=== PATIENT | female | born 1945 | race African-American/Black ===

== ENCOUNTER → 2017-03-09 | Outpatient (CLI) | payer MEDICARE, MEDICAID ==
[~2017-03-09] MED LIST: AZAT50TA18 PO; DEXL60CA3 PO; DICL75TA5 PO; FERR324T11 PO; GABA-531 PO; MINO10TA PO; PRED10TA PO; PRED5TAB48 PO; PYRI60TA10 PO; SIMV20TA6 PO
== END | disposition home or self-care (01) ==
LOC: LAB 13:22
PROVIDERS: ATTEND Neurological Surgery
DX: Z47.89 Encounter for other orthopedic aftercare (principal); M43.17 Spondylolisthesis, lumbosacral region; M47.897 Other spondylosis, lumbosacral region; I70.0 Atherosclerosis of aorta; Z98.1 Arthrodesis status
CPT/HCPCS: 72114

== ENCOUNTER → 2017-03-27 | Outpatient (CLI) | payer MEDICARE, MEDICAID | END | disposition home or self-care (01) | LOC: MAMMO 07:28 | PROVIDERS: ATTEND Internal Medicine | DX: Z12.31 Encounter for screening mammogram for malignant neoplasm of breast (principal); I10 Essential (primary) hypertension; I51.7 Cardiomegaly; J44.9 Chronic obstructive pulmonary disease, unspecified | CPT/HCPCS: 71020; G0202 ==

== ENCOUNTER → 2018-02-13 | Outpatient (CLI) | payer MEDICARE, MEDICAID | END | disposition home or self-care (01) | LOC: MRI 08:34 | PROVIDERS: ATTEND Neurological Surgery | DX: M48.061 Spinal stenosis, lumbar region without neurogenic claudication (principal); Z98.1 Arthrodesis status | CPT/HCPCS: 72148 ==

== ENCOUNTER → 2018-03-28 | Outpatient (CLI) | payer MEDICARE, MEDICAID ==
[~2018-03-28] MED LIST changes: +ASPI-1159 MT; +ATOR40TA70 MT; -PRED5TAB48 PO
== END | disposition home or self-care (01) ==
LOC: MAMMO 08:04
PROVIDERS: ATTEND Obstetrics & Gynecology Obstetrics
DX: R92.8 Other abnormal and inconclusive findings on diagnostic imaging of breast (principal)
CPT/HCPCS: 77066

== ENCOUNTER 2018-10-12 06:47 | Emergency (ER) | payer MEDICARE, MEDICAID ==
[~2018-10-12] VITALS: Ht 167.6 cm; Wt 66.0 kg
[2018-10-12 06:53] VITALS: BP 136/76
== END 2018-10-12 09:03 | disposition home or self-care (01) ==
LOC: ER 07:02
DX: M25.552 Pain in left hip (principal); M25.551 Pain in right hip; J44.9 Chronic obstructive pulmonary disease, unspecified; I10 Essential (primary) hypertension; Z79.82 Long term (current) use of aspirin; Z79.899 Other long term (current) drug therapy; Z98.890 Other specified postprocedural states
CPT/HCPCS: 73521; 99283

== ENCOUNTER 2018-10-26 06:34 | Inpatient (IN) | payer MEDICARE, MEDICAID ==
[~2018-10-26] VITALS: Ht 167.6 cm; Wt 65.8 kg
[2018-10-26] MEDS ORDERED: ACETAMINOPHEN 325MG TABLET PO ONE (07:45)
[2018-10-26] MEDS ORDERED: MORPHINE SULFATE 4 MG/ML CPJ (NOT FOR IM USE) IV ONE (08:00)
[2018-10-26] MEDS ORDERED: ONDANSETRON HCL 4MG/2ML INJ IV ONE (08:00)
[2018-10-26 08:05] LABS: BASOPHILS % 0.3 % (0.0-2.0); EOSINOPHILS % 0.2 % (0.0-5.0); HEMATOCRIT. 28.1 % (36.0-48.0); HEMOGLOBIN. 9.4 g/dL (12.0-16.0); LYMPHOCYTES % 8.5 % (20.0-50.0); MEAN CORPUSCULAR HEMOGLOBIN 29.4 pg (28.0-32.0); MEAN CORPUSCULAR VOLUME 87.8 fL (81.0-99.0); MEAN PLATELET VOLUME 6.8 fl (7.4-10.4); PLATELET 279 x1000/uL (130-400)
[2018-10-26 08:14] LABS: CHLORIDE 107 mEq/L (98-107)
[2018-10-26 08:40] LABS: PARTIAL THROMBOPLASTIN TIME 22.9 sec (23.4-31.0); PROTHROMBIN TIME 10.2 sec (9.1-11.1)
[2018-10-26] MEDS ORDERED: MORPHINE SULFATE 2 MG/ML CPJ (NOT FOR IM USE) IV ONE (08:46)
[2018-10-26] MEDS ORDERED: IOHEXOL-300 100 ML BOTTLE ONE (10:04)
[2018-10-26] MEDS ORDERED: DOCUSATE SODIUM 100MG CAPSULE PO PRN (14:15)
[2018-10-26] MEDS ORDERED: CLONIDINE 0.1MG TABLET PO PRN (14:15)
[2018-10-26] MEDS ORDERED: CYCL25PO21 PO (15:20)
[2018-10-26 15:30] VITALS: BP 111/64
[2018-10-26 16:00] VITALS: BP 111/64
[2018-10-26] MEDS: PANTOPRAZOLE 40MG DR TABLET PO SCH (21:00)
[2018-10-26] MEDS: MINOXIDIL 10MG TABLET PO SCH (21:00)
[2018-10-26] MEDS: GABAPENTIN 300MG CAPSULE PO SCH (21:04)
[2018-10-26] MEDS: HYDROMORPHONE HCL/PF 2MG/ML CPJ IV PRN (21:21)
[2018-10-26 23:41] VITALS: BP 113/51
[2018-10-26 23:49] LABS: VITAMIN B12 SERUM 1631 pg/mL (211-911)
[2018-10-26] MEDS: PYRIDOSTIGMINE BROMIDE 60MG TABLET PO SCH (23:59)
[2018-10-26] MEDS: AZATHIOPRINE 50MG TABLET PO SCH (23:59)
[2018-10-27 03:00] VITALS: BP 124/56
[2018-10-27] MEDS: PYRIDOSTIGMINE BROMIDE 60MG TABLET PO SCH ×4 (06:39→23:44)
[2018-10-27] MEDS: HYDROMORPHONE HCL/PF 2MG/ML CPJ IV PRN ×2 (07:06→16:35)
[2018-10-27 07:40] LABS: BASOPHILS % 0.4 % (0.0-2.0); EOSINOPHILS % 1.3 % (0.0-5.0); HEMOGLOBIN. 8.3 g/dL (12.0-16.0); LYMPHOCYTES % 10.8 % (20.0-50.0); MEAN CORPUSCULAR HEMOGLOBIN 30.3 pg (28.0-32.0); MEAN CORPUSCULAR VOLUME 87.6 fL (81.0-99.0); MEAN PLATELET VOLUME 7.3 fl (7.4-10.4); MONOCYTES % 11.6 % (2.0-8.0); NEUTROPHILS % 75.9 % (40.0-76.0); PLATELET 269 x1000/uL (130-400); RED BLOOD CELL COUNT 2.74 mill/uL (4.2-5.4)
[2018-10-27 07:51] LABS: CHLORIDE 107 mEq/L (98-107)
[2018-10-27 08:00] VITALS: BP 114/55
[2018-10-27] MEDS: ONDANSETRON HCL 4MG/2ML INJ IV PRN ×2 (08:52→13:09)
[2018-10-27] MEDS: MINOXIDIL 10MG TABLET PO SCH ×2 (09:44→17:02)
[2018-10-27] MEDS: GABAPENTIN 300MG CAPSULE PO SCH ×2 (09:44→20:43)
[2018-10-27] MEDS: PREDNISONE 10MG TABLET PO SCH (09:44)
[2018-10-27] MEDS: AZATHIOPRINE 50MG TABLET PO SCH (09:45)
[2018-10-27] MEDS: DICLOFENAC SODIUM 75MG DR (EC) TABLET PO SCH ×3 (09:45→20:43)
[2018-10-27] MEDS: PANTOPRAZOLE 40MG DR TABLET PO SCH (09:45)
[2018-10-27 12:00] VITALS: BP 107/50
[2018-10-27 16:00] VITALS: BP 140/60
[2018-10-27 20:00] VITALS: BP 113/61
[2018-10-27] MEDS ORDERED: SORBITOL 70% SOLN 30ML PO NR ×2 (20:00)
[2018-10-27] MEDS: ATORVASTATIN CALCIUM 20MG TABLET PO SCH ×2 (20:43)
[2018-10-27] MEDS: HYDROCODONE/ACETAMINOPHEN 10/325MG TABLET PO PRN (22:54)
[2018-10-28] VITALS: BP 138/50
[2018-10-28 04:00] VITALS: BP 118/53
[2018-10-28] MEDS: PYRIDOSTIGMINE BROMIDE 60MG TABLET PO SCH ×3 (05:42→16:29)
[2018-10-28] MEDS ORDERED: SORBITOL 70% SOLN 30ML PO NR (06:00)
[2018-10-28 08:00] VITALS: BP 118/50
[2018-10-28] MEDS ORDERED: NA PHOS,M-B/NA PHOS,DI-BA ENEMA 118ML PR NR (08:00)
[2018-10-28] MEDS: AZATHIOPRINE 50MG TABLET PO SCH (08:30)
[2018-10-28] MEDS: MINOXIDIL 10MG TABLET PO SCH ×2 (08:30→16:29)
[2018-10-28] MEDS: GABAPENTIN 300MG CAPSULE PO SCH ×2 (08:31→20:28)
[2018-10-28] MEDS: DICLOFENAC SODIUM 75MG DR (EC) TABLET PO SCH ×2 (08:31→20:29)
[2018-10-28] MEDS: PANTOPRAZOLE 40MG DR TABLET PO SCH (08:31)
[2018-10-28] MEDS ORDERED: MIDAZOLAM HCL 5 MG/5 ML VIAL ONE (10:11)
[2018-10-28] MEDS ORDERED: SIMETHICONE 40 MG/0.6 ML 30ML ONE (10:12)
[2018-10-28] MEDS ORDERED: FENTANYL CITRATE/PF 50MCG/ML 2ML VIAL ONE (10:12)
[2018-10-28] MEDS ORDERED: MIDAZOLAM HCL 5 MG/5 ML VIAL IV PRN (10:37)
[2018-10-28] MEDS ORDERED: FENTANYL CITRATE/PF 50MCG/ML 2ML VIAL IV PRN (10:39)
[2018-10-28 12:00] VITALS: BP 121/55
[2018-10-28] MEDS ORDERED: SODIUM CHLORIDE 0.9% 10ML VIAL ONE (14:41)
[2018-10-28 16:00] VITALS: BP 95/48
[2018-10-28 17:34] LABS: BASOPHILS % 0.6 % (0.0-2.0); EOSINOPHILS % 0.4 % (0.0-5.0); HEMATOCRIT. 24.1 % (36.0-48.0); HEMOGLOBIN. 7.9 g/dL (12.0-16.0); LYMPHOCYTES % 8.5 % (20.0-50.0); MEAN CORPUSCULAR HEMOGLOBIN 28.8 pg (28.0-32.0); MEAN CORPUSCULAR VOLUME 88.2 fL (81.0-99.0); MEAN PLATELET VOLUME 6.8 fl (7.4-10.4); MONOCYTES % 11.5 % (2.0-8.0); PLATELET 243 x1000/uL (130-400); RED BLOOD CELL COUNT 2.73 mill/uL (4.2-5.4); RED CELL DISTRIBUTION WIDTH 17.8 % (11.6-14.6)
[2018-10-28 20:00] VITALS: BP 101/47
[2018-10-28] MEDS: ATORVASTATIN CALCIUM 20MG TABLET PO SCH (20:28)
[2018-10-28] MEDS: HYDROCODONE/ACETAMINOPHEN 10/325MG TABLET PO PRN (21:59)
[2018-10-29] VITALS (9 sets, daily range): BP systolic 105–138; BP diastolic 50–82
[2018-10-29] MEDS: PYRIDOSTIGMINE BROMIDE 60MG TABLET PO SCH ×4 (00:27→17:00)
[2018-10-29] MEDS: ACETAMINOPHEN 325MG TABLET PO PRN (00:46)
[2018-10-29 06:44] LABS: BASOPHILS % 0.6 % (0.0-2.0); EOSINOPHILS % 1.4 % (0.0-5.0); HEMATOCRIT. 23.4 % (36.0-48.0); HEMOGLOBIN. 7.6 g/dL (12.0-16.0); LYMPHOCYTES % 12.3 % (20.0-50.0); MEAN CORPUSCULAR HEMOGLOBIN 28.7 pg (28.0-32.0); MEAN CORPUSCULAR VOLUME 87.8 fL (81.0-99.0); MEAN PLATELET VOLUME 7.4 fl (7.4-10.4); MONOCYTES % 11.3 % (2.0-8.0); NEUTROPHILS % 74.4 % (40.0-76.0); PLATELET 252 x1000/uL (130-400); RED BLOOD CELL COUNT 2.66 mill/uL (4.2-5.4); RED CELL DISTRIBUTION WIDTH 17.8 % (11.6-14.6)
[2018-10-29 07:16] LABS: CHLORIDE 107 mEq/L (98-107)
[2018-10-29] MEDS: GABAPENTIN 300MG CAPSULE PO SCH ×2 (08:03→21:57)
[2018-10-29] MEDS: PREDNISONE 10MG TABLET PO SCH (08:04)
[2018-10-29] MEDS: AZATHIOPRINE 50MG TABLET PO SCH (08:04)
[2018-10-29] MEDS: PANTOPRAZOLE 40MG DR TABLET PO SCH (08:05)
[2018-10-29] MEDS: DICLOFENAC SODIUM 75MG DR (EC) TABLET PO SCH ×2 (08:05→21:57)
[2018-10-29] MEDS: HYDROCODONE/ACETAMINOPHEN 10/325MG TABLET PO PRN ×3 (08:05→21:57)
[2018-10-29] MEDS: MINOXIDIL 10MG TABLET PO SCH ×2 (08:11→17:00)
[2018-10-29] MEDS: ATORVASTATIN CALCIUM 20MG TABLET PO SCH (21:57)
[2018-10-29 23:52] LABS: HEMATOCRIT 27.9 % (36.0-48.0); HEMOGLOBIN 9.4 g/dL (12.0-16.0)
[2018-10-30] VITALS: BP 110/56
[2018-10-30] MEDS: PYRIDOSTIGMINE BROMIDE 60MG TABLET PO SCH ×3 (00:04→11:36)
[2018-10-30 04:00] VITALS: BP 102/51
[2018-10-30 08:00] VITALS: BP 116/52
[2018-10-30] MEDS: AZATHIOPRINE 50MG TABLET PO SCH (08:44)
[2018-10-30] MEDS: DICLOFENAC SODIUM 75MG DR (EC) TABLET PO SCH (08:45)
[2018-10-30] MEDS: MINOXIDIL 10MG TABLET PO SCH (08:45)
[2018-10-30] MEDS: PANTOPRAZOLE 40MG DR TABLET PO SCH (08:45)
[2018-10-30] MEDS: GABAPENTIN 300MG CAPSULE PO SCH (08:45)
[2018-10-30] MEDS: ACETAMINOPHEN 325MG TABLET PO PRN (08:48)
[2018-10-30] MEDS: HYDROCODONE/ACETAMINOPHEN 10/325MG TABLET PO PRN (09:41)
[2018-10-30 12:00] VITALS: BP 129/55
[2018-10-30 14:51] VITALS: BP 126/53
[2018-10-30 16:00] VITALS: BP 117/68
== END 2018-10-30 16:25 | disposition home or self-care (01) | DRG 244 ==
LOC: ER 06:34 → 6EST 12:41 → EDBEDREQ 12:44 → EDBEDREQTM 12:44 → EDBEDREQSVC 12:44 → ENRESERV 13:43
PROVIDERS: ADMIT Internal Medicine; ATTEND Internal Medicine
PROC: 0DJD8ZZ Inspection of Lower Intestinal Tract, Via Natural or Artificial Opening Endoscopic (ICD-10-PCS; principal; 2018-10-28 10:00)
PROC: 30233N1 Transfusion of Nonautologous Red Blood Cells into Peripheral Vein, Percutaneous Approach (ICD-10-PCS; 2018-10-29)
DX: K57.31 Diverticulosis of large intestine without perforation or abscess with bleeding (principal); D62 Acute posthemorrhagic anemia; G70.00 Myasthenia gravis without (acute) exacerbation; I11.9 Hypertensive heart disease without heart failure; J44.9 Chronic obstructive pulmonary disease, unspecified; K64.8 Other hemorrhoids; E78.5 Hyperlipidemia, unspecified; K21.9 Gastro-esophageal reflux disease without esophagitis; E53.8 Deficiency of other specified B group vitamins; M19.90 Unspecified osteoarthritis, unspecified site; G89.29 Other chronic pain; M54.5 Low back pain; N32.81 Overactive bladder; M47.26 Other spondylosis with radiculopathy, lumbar region; Z90.49 Acquired absence of other specified parts of digestive tract; Z98.1 Arthrodesis status; Z79.899 Other long term (current) drug therapy; Z85.038 Personal history of other malignant neoplasm of large intestine; Z87.891 Personal history of nicotine dependence; Z83.3 Family history of diabetes mellitus
CPT/HCPCS: 36415; 72148; 73502; 73552; 74177; 80048; 82040; 82270; 82607; 84439; 85014; 85018; 86850; 86900; 86920; 87015; 87045; 87427; 87449; 93970; 96374; 96375; 99152; 99285; A4216; J1170; J2250; J2270; J2405; J3010; J7500; J7512; P9016; Q9967; G0500

== ENCOUNTER → 2019-08-06 | Outpatient (CLI) | payer MEDICARE, MEDICAID ==
[~2019-08-06] MED LIST changes: -ASPI-1159 MT; +ASPI-1393 MT; +CYCL25PO21 PO
== END | disposition home or self-care (01) ==
LOC: MAMMO 12:24
PROVIDERS: ATTEND Internal Medicine
DX: Z12.31 Encounter for screening mammogram for malignant neoplasm of breast (principal); R92.1 Mammographic calcification found on diagnostic imaging of breast
CPT/HCPCS: 77067

== ENCOUNTER → 2020-09-08 | Outpatient (CLI) | payer MEDICARE, MEDICAID ==
[~2020-09-08] MED LIST changes: -ASPI-1393 MT; +ASPI-1497 MT; +SIMV-43 PO; -SIMV20TA6 PO
== END | disposition home or self-care (01) ==
LOC: LAB 06:51
PROVIDERS: ATTEND Obstetrics & Gynecology Obstetrics
DX: Z01.812 Encounter for preprocedural laboratory examination (principal); Z20.828 Contact with and (suspected) exposure to other viral communicable diseases
CPT/HCPCS: C9803; U0003

== ENCOUNTER → 2020-09-10 | Outpatient (CLI) | payer MEDICARE, MEDICAID | END | disposition home or self-care (01) | LOC: MAMMO 08:17 | PROVIDERS: ATTEND Obstetrics & Gynecology Obstetrics | DX: Z12.31 Encounter for screening mammogram for malignant neoplasm of breast (principal) | CPT/HCPCS: 77067 ==

== ENCOUNTER 2022-04-27 16:57 | Inpatient (IN) | payer MEDICARE, OTHER ==
[~2022-04-27] VITALS: Ht 167.6 cm; Wt 68.0 kg
[~2022-04-27 16:57] MED LIST changes: +CYCL25PO15 PO; -CYCL25PO21 PO; -GABA-531 PO; +GABA-532 PO
[2022-04-27 19:23] LABS: HEMATOCRIT. 37.9 % (36.0-48.0); HEMOGLOBIN. 12.6 g/dL (12.0-16.0); MEAN CORPUSCULAR HEMOGLOBIN 29.2 pg (28.0-32.0); MEAN CORPUSCULAR VOLUME 87.6 fL (81.0-99.0); MEAN PLATELET VOLUME 7.4 fl (7.4-10.4); PLATELET 311 x1000/uL (130-400); RED BLOOD CELL COUNT 4.32 mill/uL (4.2-5.4); RED CELL DISTRIBUTION WIDTH 18.1 % (11.6-14.6)
[2022-04-27 19:29] LABS: CHLORIDE 109 mEq/L (98-107)
[2022-04-27] MEDS ORDERED: ACETAMINOPHEN 650MG SUPP PR PRN ×2 (20:15)
[2022-04-27] MEDS ORDERED: MORPHINE SULFATE 2 MG/ML CPJ (NOT FOR IM USE) IV PRN (20:15)
[2022-04-27] MEDS ORDERED: ACETAMINOPHEN 325MG TABLET PO PRN ×2 (20:15)
[2022-04-27] MEDS ORDERED: GUAIFENESIN 200MG/10ML SUGAR FREE UDC PO PRN (20:15)
[2022-04-27] MEDS ORDERED: NON FORMULARY PATIENT HOME MED XX SCH (20:15)
[2022-04-27] MEDS ORDERED: IPRATROPIUM/ALBUTEROL 0.5-3(2.5)MG/3ML NEB HHN PRN (20:15)
[2022-04-27] MEDS ORDERED: ONDANSETRON HCL 4MG/2ML INJ IV PRN (20:15)
[2022-04-27] MEDS ORDERED: MAGNESIUM/ALUMINUM HYDROXIDE/SIMETHICONE 30ML UDC PO PRN (20:15)
[2022-04-27] MEDS ORDERED: CLONIDINE 0.1MG TABLET PO PRN (20:15)
[2022-04-27] MEDS ORDERED: DOCUSATE SODIUM 100MG CAPSULE PO PRN (20:15)
[2022-04-27] MEDS ORDERED: PRED10TA PO (20:53)
[2022-04-27] MEDS ORDERED: DENO60DI SUBCUT (20:53)
[2022-04-27] MEDS ORDERED: MIRA50TA PO (20:53)
[2022-04-27] MEDS ORDERED: ERGO1250 PO (20:53)
[2022-04-27] MEDS ORDERED: PANT40TA51 PO (20:53)
[2022-04-27] MEDS ORDERED: HYDR50TA PO (20:53)
[2022-04-27] MEDS ORDERED: AZAT50TA24 PO (20:53)
[2022-04-27] MEDS ORDERED: CYCL10TA21 PO (20:53)
[2022-04-27] MEDS ORDERED: POTA-185 PO (20:53)
[2022-04-27] MEDS ORDERED: PYRI60TA10 PO (20:53)
[2022-04-27] MEDS ORDERED: [UNRECOGNIZED DRUG - CODE] PO (20:53)
[2022-04-27] MEDS ORDERED: POTA-205 PO (20:54)
[2022-04-27] MEDS ORDERED: PYRIDOSTIGMINE BROMIDE 60MG TABLET PO PRN (21:15)
[2022-04-27 21:19] LABS: PLATELET ESTIMATE NORMAL
[2022-04-27 22:17] VITALS: BP 116/63
[2022-04-27 22:30] VITALS: BP 105/63
[2022-04-27] MEDS ORDERED: DOPAMINE 400MG/250ML PREMIX 250 ML IV PRN (22:30)
[2022-04-27 23:58] VITALS: BP 118/54
[2022-04-28] VITALS (11 sets, daily range): BP systolic 91–139; BP diastolic 45–69
[2022-04-28] MEDS ORDERED: DOPAMINE 400MG/250ML PREMIX 250 ML IV PRN (02:30)
[2022-04-28] MEDS ORDERED: TIZA-204 PO (04:01)
[2022-04-28] MEDS ORDERED: TIZANIDINE HCL 2MG TABLET PO PRN (04:15)
[2022-04-28 07:05] LABS: BASOPHILS % 0.4 % (0.0-2.0); EOSINOPHILS % 0.6 % (0.0-5.0); HEMATOCRIT. 34.7 % (36.0-48.0); HEMOGLOBIN. 11.5 g/dL (12.0-16.0); LYMPHOCYTES % 9.7 % (20.0-50.0); MEAN CORPUSCULAR HEMOGLOBIN 28.9 pg (28.0-32.0); MEAN CORPUSCULAR VOLUME 87.3 fL (81.0-99.0); MEAN PLATELET VOLUME 7.2 fl (7.4-10.4); MONOCYTES % 11.9 % (2.0-8.0); NEUTROPHILS % 77.4 % (40.0-76.0); PLATELET 276 x1000/uL (130-400); RED BLOOD CELL COUNT 3.98 mill/uL (4.2-5.4); RED CELL DISTRIBUTION WIDTH 17.9 % (11.6-14.6)
[2022-04-28 07:12] LABS: CHLORIDE 109 mEq/L (98-107)
[2022-04-28 07:24] LABS: CREATINE KINASE 64 IU/L (26-192); HDL CHOLESTEROL 75 mg/dL (40-59); LDL CHOLESTEROL 67 mg/dL (5-100)
[2022-04-28 08:34] LABS: PROTHROMBIN TIME 10.9 sec (9.6-11.0)
[2022-04-28] MEDS: LOSARTAN POTASSIUM 100 MG TABLET PO SCH (09:00)
[2022-04-28] MEDS ORDERED: ASPIRIN 81MG EC TABLET PO SCH (09:00)
[2022-04-28] MEDS: AMLODIPINE 10MG TABLET PO SCH (09:00)
[2022-04-28] MEDS: AZATHIOPRINE 50MG TABLET PO SCH (09:00)
[2022-04-28] MEDS: PREDNISONE 10MG TABLET PO SCH (09:00)
[2022-04-28] MEDS ORDERED: GENTAMICIN/NS IRRIGATION 500 ML IR ONE (12:50)
[2022-04-28 13:02] LABS: CLARITY URINE CLEAR (CLEAR); COLOR URINE YELLOW (YELLOW); KETONES URINE NEGATIVE (NEGATIVE); LEUKOCYTE ESTERASE URINE NEGATIVE (NEGATIVE); NITRITE URINE NEGATIVE (NEGATIVE); OCCULT BLOOD URINE NEGATIVE (NEGATIVE); PH URINE 5.5 (4.5-8.0); PROTEIN URINE NEGATIVE (NEGATIVE); SPECIFIC GRAVITY URINE 1.015 (1.005-1.030)
[2022-04-28] MEDS ORDERED: DIPHENHYDRAMINE 50MG/ML VIAL ONE (14:27)
[2022-04-28] MEDS ORDERED: LIDOCAINE HCL 1% 10 MG/ML 10ML VIAL ONE (14:28)
[2022-04-28] MEDS ORDERED: MIDAZOLAM HCL 2 MG/2 ML VIAL ONE ×2 (14:28)
[2022-04-28] MEDS ORDERED: FENTANYL CITRATE/PF 50MCG/ML 2ML VIAL ONE (14:28)
[2022-04-28] MEDS ORDERED: CEFAZOLIN 1000MG PREMIX 100 ML IV ONE (14:29)
[2022-04-28] MEDS ORDERED: MORPHINE SULFATE 2 MG/ML CPJ (NOT FOR IM USE) IV PRN (14:30)
[2022-04-28] MEDS: HYDROCODONE/ACETAMINOPHEN 5/325MG TABLET PO PRN (20:40)
[2022-04-28] MEDS: CEFAZOLIN 1000MG PREMIX 50 ML IV SCH (21:36)
[2022-04-28] MEDS ORDERED: CEFAZOLIN SODIUM 1000MG/VIAL IV SCH (22:00)
[2022-04-29] VITALS (7 sets, daily range): BP systolic 111–130; BP diastolic 58–74
[2022-04-29] MEDS: HYDROCODONE/ACETAMINOPHEN 5/325MG TABLET PO PRN ×2 (01:29→06:23)
[2022-04-29] MEDS: CEFAZOLIN 1000MG PREMIX 50 ML IV SCH (06:27)
[2022-04-29 06:35] LABS: BASOPHILS % 0.5 % (0.0-2.0); EOSINOPHILS % 1.2 % (0.0-5.0); HEMATOCRIT. 38.1 % (36.0-48.0); HEMOGLOBIN. 12.3 g/dL (12.0-16.0); MEAN CORPUSCULAR HEMOGLOBIN 28.6 pg (28.0-32.0); MEAN CORPUSCULAR VOLUME 88.3 fL (81.0-99.0); MEAN PLATELET VOLUME 7.2 fl (7.4-10.4); MONOCYTES % 9.9 % (2.0-8.0); NEUTROPHILS % 78.4 % (40.0-76.0); PLATELET 288 x1000/uL (130-400); RED BLOOD CELL COUNT 4.31 mill/uL (4.2-5.4); RED CELL DISTRIBUTION WIDTH 17.6 % (11.6-14.6)
[2022-04-29 06:45] LABS: CHLORIDE 108 mEq/L (98-107)
[2022-04-29] MEDS: AMLODIPINE 10MG TABLET PO SCH (08:33)
[2022-04-29] MEDS: PREDNISONE 10MG TABLET PO SCH (08:33)
[2022-04-29] MEDS: LOSARTAN POTASSIUM 100 MG TABLET PO SCH (08:34)
[2022-04-29] MEDS: AZATHIOPRINE 50MG TABLET PO SCH (08:34)
== END 2022-04-29 12:30 | disposition home or self-care (01) | DRG 244 ==
LOC: ER 16:57 → EDBEDREQSVC 18:38 → 3WST 19:32 → EDBEDREQTM 19:49 → EDBEDREQ 19:49 → ENRESERV 20:04
PROVIDERS: ADMIT Family Medicine Adult Medicine; ATTEND Family Medicine Adult Medicine
PROC: 0JH606Z Insertion of Pacemaker, Dual Chamber into Chest Subcutaneous Tissue and Fascia, Open Approach (ICD-10-PCS; principal; 2022-04-28)
PROC: 02HK3JZ Insertion of Pacemaker Lead into Right Ventricle, Percutaneous Approach (ICD-10-PCS; 2022-04-28)
PROC: 02H63JZ Insertion of Pacemaker Lead into Right Atrium, Percutaneous Approach (ICD-10-PCS; 2022-04-28)
PROC: 0JPT02Z Removal of Monitoring Device from Trunk Subcutaneous Tissue and Fascia, Open Approach (ICD-10-PCS; 2022-04-28)
DX: I44.2 Atrioventricular block, complete (principal); I49.5 Sick sinus syndrome; I27.20 Pulmonary hypertension, unspecified; N32.81 Overactive bladder; J44.9 Chronic obstructive pulmonary disease, unspecified; I48.92 Unspecified atrial flutter; E78.5 Hyperlipidemia, unspecified; G70.00 Myasthenia gravis without (acute) exacerbation; D64.9 Anemia, unspecified; K21.9 Gastro-esophageal reflux disease without esophagitis; G89.29 Other chronic pain; I11.9 Hypertensive heart disease without heart failure; Z20.822 Contact with and (suspected) exposure to COVID-19; M54.50 Low back pain, unspecified; I25.10 Atherosclerotic heart disease of native coronary artery without angina pectoris; M19.90 Unspecified osteoarthritis, unspecified site; K57.90 Diverticulosis of intestine, part unspecified, without perforation or abscess without bleeding; Z85.038 Personal history of other malignant neoplasm of large intestine; Z87.891 Personal history of nicotine dependence; Z98.1 Arthrodesis status; Z79.82 Long term (current) use of aspirin; Z79.899 Other long term (current) drug therapy; Z90.49 Acquired absence of other specified parts of digestive tract
CPT/HCPCS: 33208; 36415; 71045; 80048; 80053; 80061; 81003; 82550; 83036; 83735; 83880; 84443; 84484; 85025; 87426; 93005; 93306; 97162; 99285; C1785; C1898; C9803; J0690; J1200; J1265; J2250; J2270; J3010; J3490; J7500; J7512

== ENCOUNTER 2023-05-21 07:58 | Emergency (ER) | payer MEDICARE, OTHER ==
[~2023-05-21] VITALS: Ht 167.6 cm; Wt 68.0 kg
[~2023-05-21 07:58] MED LIST changes: -AZAT50TA18 PO; +AZAT50TA24 PO; +CYCL10TA21 PO; -CYCL25PO15 PO; +DENO60DI SUBCUT; -DEXL60CA3 PO; -DICL75TA5 PO; +ERGO1250 PO; -FERR324T11 PO; +HYDR50TA PO; -MINO10TA PO; +MIRA50TA PO; +PANT40TA51 PO; +POTA-205 PO; -SIMV-43 PO; +TIZA-204 PO; +[UNRECOGNIZED DRUG - CODE] PO
[2023-05-21 08:09] VITALS: O2SAT 100
[2023-05-21] MEDS ORDERED: IBUPROFEN 600MG TABLET PO ONE (08:30)
[2023-05-21] MEDS ORDERED: NAPR500T7 MT (10:43)
[2023-05-21 11:20] VITALS: BP 142/79; PULSE 97; RESP 18; TEMP 98.3
== END 2023-05-21 11:20 | disposition home or self-care (01) ==
LOC: ER 08:34
DX: M54.50 Low back pain, unspecified (principal); M79.10 Myalgia, unspecified site; Z79.899 Other long term (current) drug therapy
CPT/HCPCS: 72100; 73552; 99284

== ENCOUNTER 2023-07-14 12:26 | Emergency (ER) | payer MEDICARE, OTHER ==
[~2023-07-14] VITALS: Ht 167.6 cm; Wt 60.7 kg
[~2023-07-14 12:26] MED LIST changes: +NAPR500T7 MT
[2023-07-14 12:35] VITALS: TEMP 98.9; O2SAT 98
[2023-07-14] MEDS ORDERED: ACETAMINOPHEN 325MG TABLET PO ONE (13:30)
[2023-07-14] MEDS ORDERED: DIAZEPAM 5 MG TABLET PO ONE (13:30)
[2023-07-14] MEDS ORDERED: KETOROLAC 60MG/2ML VIAL IM ONE (13:30)
[2023-07-14 15:30] VITALS: BP 140/64; PULSE 65; RESP 18
== END 2023-07-14 15:32 | disposition home or self-care (01) ==
LOC: ER 12:26
DX: M54.30 Sciatica, unspecified side (principal); J44.1 Chronic obstructive pulmonary disease with (acute) exacerbation; Z79.899 Other long term (current) drug therapy; Z79.82 Long term (current) use of aspirin
CPT/HCPCS: 99283; 96372; J1885

== ENCOUNTER 2024-05-28 04:15 | Emergency (ER) | payer MEDICARE, OTHER ==
[~2024-05-28] VITALS: Ht 167.6 cm; Wt 59.0 kg
[~2024-05-28 04:15] MED LIST changes: +CIPR500T5 MT; +HYDR-4001 MT; +METR-167 MT; +PYRI60TA PO; -PYRI60TA10 PO
[2024-05-28 04:23] VITALS: O2SAT 98
[2024-05-28] MEDS: HYDROCODONE/ACETAMINOPHEN 5/325MG TABLET PO ONE (06:00)
[2024-05-28] MEDS ORDERED: GABA-532 MT (10:34)
[2024-05-28] MEDS ORDERED: HYDR-4001 MT (10:34)
[2024-05-28 11:02] VITALS: BP 141/72; PULSE 68; RESP 15; TEMP 98.3
== END 2024-05-28 11:10 | disposition home or self-care (01) ==
LOC: ER 04:15
DX: M54.40 Lumbago with sciatica, unspecified side (principal); Z98.890 Other specified postprocedural states
CPT/HCPCS: 72100; 99283